=== PATIENT | male | born 1985 | race Caucasian/White ===

== ENCOUNTER 2020-12-29 15:12 | Emergency (ER) | payer OTHER, SELFPAY ==
--- NOTE | ~2020-12-29 | XR_ITS ---
XR ankle LT min 3V DATE: 12/29/2020 15:33 INDICATION: Rolled ankle. Lateral pain, swelling, bruising TECHNIQUE: 4 views COMPARISON: None FINDINGS: Plantar calcaneal enthesopathy. No fracture or dislocation of the ankle or disruption of the ankle mortise is detected. There is soft tissue swelling of the ankle, greater laterally. IMPRESSION: Soft tissue swelling, greater laterally No fracture or dislocation of the ankle is detected Reviewed, dictated and finalized at location A.
[2020-12-29 15:16] VITALS: BP 146/86; PULSE 84; RESP 18; TEMP 36.8; O2SAT 99
--- NOTE | 2020-12-29 15:50 | ED.LOWEXIN ---
HPI - Extremity Injury (Lower) General Chief Complaint: Extremity Injury, Lower Stated Complaint: Left ankle injury Time Seen by Provider: 12/29/20 15:21 Source: patient Mode of arrival: ambulatory Limitations: no limitations History of Present Illness HPI Narrative: 35-year-old with no major medical problems here with complaints of left ankle pain and swelling. Patient states that he stepped down a landscaping sledge about 1 ft down , not quite sure he twisted his ankle then ,now having pain and swelling around the ankle is able to ambulate with a limp .He denies any other injuries MD complaint: ankle injury (left) and fall Onset (ago): day(s) (1) Injury: Left: ankle Type of Injury: unknown Place: home Severity: moderate Relieving factors: nothing Exacerbating factors: weight bearing and movement Context: fall Associated symptoms: swelling Other symptoms: none Related Data Allergies Allergy/AdvReac Type Severity Reaction Status Date / Time No Known Allergies Allergy Mild Verified 12/29/20 15:13 Review of Systems Review of Systems: All systems reviewed & are unremarkable except as noted in HPI and below Constitutional: Constitutional: Reports no additional constitutional complaints Eyes: Eyes: Reports no additional eye complaints ENT: Reports system reviewed and no additional complaints, except as documented Cardiovascular: Cardiovascular: Reports no additional cardiovascular complaints Respiratory: Respiratory: Reports no additional respiratory complaints Gastrointestinal: Gastrointestinal: Reports no additional gastrointestinal complaints Musculoskeletal: Musculoskeletal: Reports as per HPI Neurologic: Reports system reviewed and no additional complaints, except as documented Exam Narrative: Exam Narrative: GENERAL: Well-appearing, well-nourished, and in no acute distress. HEAD: Normocephalic, atraumatic. EYES: PERRLA and EOMI.. NECK: Supple. CHEST: Clear to auscultation. No respiratory distress. HEART: Regular rate and rhythm. No murmur heard. Normal peripheral pulses EXTREMITIES: Examination of the left ankle shows moderate soft tissue swelling associated with some bruising around the Achilles and lateral aspect of the foot SKIN: Warm, dry, no rash. NEURO: No focal deficits. Alert and oriented x3. PSYCH: Normal mood and affect. Course Course Emergency Course: Inform patient about his x-ray findings. We will apply Luciano wrap and crutches for him to ambulate. Advised him to keep his leg elevated. Vital Signs Vital signs: Vital Signs Temperature 36.8 C 12/29/20 15:16 Pulse Rate 84 12/29/20 15:16 Respiratory Rate 18 12/29/20 15:16 Blood Pressure 146/86 H 12/29/20 15:16 Pulse Oximetry 99 12/29/20 15:16 Temperature 36.8 C 12/29/20 15:16 Pulse Rate 84 12/29/20 15:16 Respiratory Rate 18 12/29/20 15:16 Blood Pressure 146/86 H 12/29/20 15:16 Pulse Oximetry 99 12/29/20 15:16 MDM - Extremity Injury (Lower) Imaging Data Radiologist's impression: ITS Impressions Ankle X-Ray 12/29/20 15:42 IMPRESSION: Soft tissue swelling, greater laterally No fracture or dislocation of the ankle is detected Discharge Plan Discharge Clinical Impression: Ankle sprain and strain Patient Disposition: Home, Self-Care Condition: Stable Instructions: Antibiotic Form, Ankle Sprain (DC) Prescriptions: New ibuprofen 600 mg tablet 600 mg PO TID PRN (Reason: pain) Qty: 30 RF: 0 Follow-up/Referrals: Salbador Pelletier MD [Physician] - Melany Ramos DO [Primary Care Provider] - Time of Disposition: 16:06
[2020-12-29 16:15] VITALS: BP 138/88; PULSE 82; RESP 20; O2SAT 100
== END 2020-12-29 16:17 | disposition home or self-care (01) ==
PROVIDERS: Emergency Provider Family Medicine; PCP Family Medicine
DX: S93.402A Sprain of unspecified ligament of left ankle, initial encounter (principal); X50.0XXA Overexertion from strenuous movement or load, initial encounter
CPT/HCPCS: 73610; 99283